=== PATIENT | male | born 1970 | race Caucasian/White ===

== ENCOUNTER → 2017-08-27 12:36 | Outpatient (CLI) | payer OTHER, MEDICAID, SELFPAY ==
--- NOTE | 2017-08-27 | DI.RAD.S_ITS ---
PROCEDURE: XR ELBOW RT MIN 3V INDICATIONS: SOFT TISSUE MASS TECHNIQUE: 3 views of the elbow were acquired. COMPARISON: None. FINDINGS: Bones: No fractures or dislocations. No suspicious bony lesions. Small enthesophyte is identified along the medial humeral epicondyle. Soft tissues: There is a moderate-sized soft tissue mass identified along the posterior aspect of the elbow, best appreciated on the lateral view, which may measure up to approximately 5.2 x 1.8 cm. No bony involvement is evident. IMPRESSION: 1. Soft tissue mass along the posterior margin of the elbow does not appear to involve the bone. Please consider contrast enhanced MRI for further evaluation. 2. No acute fracture of the right elbow. Dictated by: Uriel Crawford M.D. on 08/27/2017 at 13:39 Approved by: Uriel Crawford M.D. on 08/27/2017 at 13:40
--- NOTE | 2017-08-27 | DI.RAD.S_ITS ---
PROCEDURE: XR ANKLE LT MIN 3V INDICATIONS: SOFT TISSUE MASS TECHNIQUE: 3 views of the ankle were acquired. COMPARISON: None. FINDINGS: Bones: There is a well-corticated ossific/calcific density identified at the tip of the lateral malleolus. There is slight widening of the lateral clear space. Otherwise, the remainder of the ankle mortise is maintained. There is no acute fracture or dislocation. No suspicious osseous lesions are identified. Soft tissues: No significant tibiotalar joint effusion is present. There is a prominent soft tissue density identified overlying the lateral margin of the hindfoot, which measures approximately 5.6 x 2.5 cm. IMPRESSION: 1. Soft tissue mass along the lateral margin of the hindfoot is not adequately characterize, but does not appear to involve the bone. A dedicated contrast enhanced MRI of the ankle is recommended. 2. Apparent old injury of the lateral margin of the ankle with associated bony avulsion. No acute fracture is evident. Dictated by: Uriel Crawford M.D. on 08/27/2017 at 13:26 Approved by: Uriel Crawford M.D. on 08/27/2017 at 13:27
== END ==
PROVIDERS: PCP Family Medicine; Visit Provider Family Medicine
DX: M79.9 Soft tissue disorder, unspecified (principal); R22.42 Localized swelling, mass and lump, left lower limb; R22.31 Localized swelling, mass and lump, right upper limb
CPT/HCPCS: 73080; 73610

== ENCOUNTER → 2018-03-31 15:36 | Outpatient (CLI) | payer BC, SELFPAY ==
--- NOTE | 2018-03-31 | DI.MRI.S_ITS ---
PROCEDURE: MR ANKLE LT WO/W CON INDICATIONS: SOFT TISSUE MASS. LATERAL LEFT ANKLE TECHNIQUE: Noncontrast sagittal T1 spin echo and T2 fast spin echo with fat saturation, axial proton density fast spin echo and T2 fast spin echo with fat saturation, axial T1 spin echo with fat saturation, coronal T1 spin echo and T2 fast spin echo with fat saturation through the ankle/hindfoot. Post-contrast axial, coronal, and sagittal T1 spin echo with fat saturation through the ankle/hindfoot. COMPARISON: None. FINDINGS: Image quality: Excellent. Bones and joints: No suspicious osseous enhancement. No bone marrow contusions or fractures. No hindfoot coalitions. No osteochondral injuries of the talar dome. No pathologic joint effusions. Medial structures: The posterior tibialis, flexor digitorum longus, and flexor hallucis longus tendons are intact. The posterior tibial neurovascular bundle appears normal within the tarsal tunnel, without extrinsic mass effect. The deep layer (anterior and posterior tibiotalar ligaments) and superficial layer (tibionavicular, tibiospring, and tibiocalcaneal ligaments) of the deltoid ligament appear normal. The spring ligament components (superomedial calcaneonavicular, medioplantar oblique calcaneonavicular, and inferoplantar longitudinal ligaments) are intact. Lateral structures: The anterior talofibular, calcaneofibular, and posterior talofibular ligaments appear intact. More superiorly, the anterior and posterior tibiofibular ligaments appear intact, as is the intermalleolar ligament. The tibiofibular syndesmosis is normal in width at 2 mm or less. The peroneus longus and brevis tendons demonstrate normal location and morphology. Adjacent bony peroneal tubercle and retrotrochlear prominence are normal in size. The sinus tarsi demonstrates normal fatty signal, without edema, fibrosis, or cyst formation. Visualized sinus tarsi components (cervical ligament, interosseous talocalcaneal ligament, roots of the inferior extensor retinaculum) appear normal. The calcaneonavicular and calcaneocuboid components of the bifurcate ligament appear intact. The dorsal calcaneocuboid ligament appears intact. Within the soft tissues superficially, in the subcutaneous layer, there is an ovoid sharply demarcated mass which measures up to 4.8 cm AP, 2.3 cm transverse and 5.0 cm craniocaudad. This does not appear to emanate from adjacent osseous, tendinous, or muscular structures. Rather, it appears quite sharply demarcated and encapsulated, but shows definite internal slightly heterogeneous contrast enhancement. For example, please refer to the parasagittal imaging precontrast T1 series 6 image 17 to postcontrast fat-suppressed T1 series 16 image 17. Anterior structures: The tibialis anterior, extensor hallucis longus, and extensor digitorum longus tendons appear intact. The dorsal talonavicular ligament appears intact. Posterior and plantar structures: Achilles tendon is intact. Medial and lateral bands of the plantar fascia are of normal thickness. No abductor digiti quinti muscle atrophy to suggest Castro neuropathy. IMPRESSION: Ovoid enhancing soft tissue mass which has low T1 signal, intermediate heterogeneous T2 signal, and mildly heterogeneous diffuse enhancement throughout. As discussed, this is centered within the subcutaneous fat laterally, adjacent to the posterolateral aspect of the talus and calcaneus, and reportedly has been slowly growing for approximately 20 years according to the patient. 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 Dictated by: Modesto Tinoco M.D. on 04/03/2018 at 10:36 Approved by: Modesto Tinoco M.D. on 04/03/2018 at 10:50
--- NOTE | 2018-03-31 | DI.MRI.S_ITS ---
PROCEDURE: MR ELBOW RT WO/W CON INDICATIONS: SOFT TISSUE MASSES. RIGHT ELBOW TECHNIQUE: Noncontrast coronal proton density fast spin echo and T2 fast spin echo with fat saturation, coronal T1 spin echo with fat saturation, axial and sagittal T1 spin echo and T2 fast spin echo with fat saturation through the elbow. Post-contrast coronal, axial, and sagittal T1 spin echo with fat saturation through the elbow. COMPARISON: None. FINDINGS: Image quality: Diagnostic Lateral structures: The lateral ulnar collateral ligament and radial collateral ligament both appear intact. There is increased signal and heterogeneity identified involving the origin of the common extensor tendon with low-grade partial-thickness tearing present. Medial structures: The ulnar collateral ligament appears intact. The overlying common flexor tendon appears normal. The ulnar nerve appears normal in size and signal within the cubital tunnel. Anterior structures: The biceps and brachialis tendons both appear intact as they insert onto the proximal radius and ulna, respectively. No bicipitoradial bursal fluid. The median and radial neurovascular bundles appear normal; no focal muscle atrophy to suggest nerve impingement. Posterior structures: The distal aspect of the triceps tendon is intact, but demonstrates slight increased signal. Along the posterior aspect of the elbow there is a large heterogeneous lobulated mass with numerous internal septations identified that demonstrates mildly postcontrast enhancement. This structure is superficial to the triceps tendon and muscle and it measures approximately 5.3 x 9.0 x 1.8 cm (image 25, series 7 and image 21, series 5). On the precontrast fluid sensitive sequences, this structure is predominantly hyperintense. Serpiginous areas are appreciated within the structure. On the T1 images this structure is isointense to the adjacent muscle. Bone and cartilage: No suspicious osseous enhancement. No bone marrow contusions or fractures. No osteochondral injuries. No osseous lesions are identified in IMPRESSION: 1. Large lobulated and serpiginous mass within the posterior subcutaneous tissues does not appear to be connected to the musculoskeletal structures at this location. This structure may represent a vascular or lymphatic malformation versus prominent chronic olecranon bursitis. A peripheral nerve sheath tumor or synovial neoplasm is felt to be unlikely. Please correlate clinically. 2. Mild distal triceps tendinopathy. 3. Moderate grade partial-thickness tear and tendinopathy involving the common extensor tendon origin. Dictated by: Uriel Crawford M.D. on 04/03/2018 at 16:48 Approved by: Uriel Crawford M.D. on 04/03/2018 at 16:58
== END ==
PROVIDERS: PCP Family Medicine; Visit Provider Family Medicine
DX: M79.89 Other specified soft tissue disorders (principal); S56.511A Strain of other extensor muscle, fascia and tendon at forearm level, right arm, initial encounter; M62.9 Disorder of muscle, unspecified
CPT/HCPCS: 73223; 73723; A9579